=== PATIENT | male | born 1960 | race Caucasian/White ===

== ENCOUNTER 2024-01-02 10:24 | Emergency (ER) | payer MEDICARE, OTHER, SELFPAY ==
[2024-01-02 10:28] VITALS: BP 162/103
--- NOTE | 2024-01-02 11:05 | ED.GENMED ---
History of Present Illness
General
Chief Complaint: Abdominal Symptoms
Source: patient
Exam Limitations: none
Time Seen by Provider: 01/02/24 11:05
Nursing documentation reviewed up to this point in time: agreed with
History of Present Illness
History of Present Illness:
Patient is a 63-year-old male past medical history of A-fib normally in sinus rhythm not on anticoagulation presents to the ER for evaluation. Patient reports he woke up and rolled over in bed at 5 AM and noticed his left hand was tingling and he
had a sharp pain in the midsternal to left chest which lasted about 10 seconds. He reports the tingling in his arm also lasted for the same length of time. He had no associated shortness of breath. He was working shortly after in the morning and
had some spasming pain in his left shoulder and was concerned about cardiac symptoms. He presently is asymptomatic. He is followed by Dr. Sanii for his A-fib. He has had a history of 5 ablations 3 for tachycardia to for A-fib.
Past History
Past History
ED Past Medical History: Arrthythmia (Atrial fib), HTN and Other (arthritis, SVT, Ulcers)
ED Past Surgical History: Cardiac (Cardiac ablation X 2, Ablation for Tachycardia X 3), Orthopedic (Bilateral Knee replacement surgery, Left forearm surgery) and Other (Pulmonary vein ablation's .SVT ablations)
Social History
Tobacco: Non-smoker
Alcohol: Occasional
Personal:
Living: alone
Employment: Employed (sales)
Family History
Family History: Unable to obtain
Review of Systems
Review of Systems
Allergies reviewed?: Yes
All Other Systems: ROS reviewed and negative except as documented in HPI and ROS
Constitutional: Reports no symptoms
Respiratory: Reports no symptoms; Denies trouble breathing
Cardiac: Reports chest pain
ABD/GI: Reports no symptoms
Musculoskeletal: Reports no symptoms
Skin: Reports no symptoms
Neurological: Reports no symptoms
Psychiatric: Reports no symptoms
Phy Exam
General Physical Exam
General Presentation: no apparent distress
General age: appears stated age
General Skin: warm and dry
General Habitus: normal
General Mental: alert
General Hydration: appears well hydrated
Cardiovascular Exam
Cardiovascular Exam: regular rate/rhythm, no murmur and normal peripheral pulses
Pulmonary Exam
Pulmonary Exam: lungs clear and no respiratory distress
Neurological Exam
Neurological Exam: alert and oriented x3
Musculoskeletal Exam
Musculoskeletal Exam: full ROM
Skin Exam
Skin Exam: normal color and warm/dry
Psychiatric Exam
Psychiatric Exam: normal mood/affect
Course
Orders/Labs/Results
Orders:
Orders
01/02/24 10:28
EKG [Electrocardiogram (*1)] Urgent
Reason for Study: Chest Pain
EKG- Treatment ONCE
01/02/24 11:06
IV Insert/Care/Rem.- Treatment PRN
01/02/24 11:07
Cardiac Monitoring- Treatment ONCE
CR Chest - 2 Views Urgent
Comment:
Reason For Exam: 36 over hercp
01/02/24 11:34
Complete Blood Count/With Diff Urgent
Comprehensive Metabolic Panel Urgent
Troponin I Urgent
01/02/24 13:07
EKG- Treatment ONCE
01/02/24 14:22
Troponin I Urgent
01/02/24 14:30
Electrocardiogram (*1) Stat
Reason for Study: Other
Other Reason for Exam: chest pain
Abnormal Lab Results
01/02/24
11:34
Absolute Lymphs (auto) 0.8 L 10^3/uL
(1.2-3.4)
Lymphocytes % 15.0 L %
(20.5-51.1)
Monocytes % 10.0 H %
(1.7-9.3)
01/02/24 11:34
01/02/24 11:34
Vital Signs
Initial and Last Documented VS:
Initial Vital Signs
Temp Pulse Resp Pulse Ox
98.0 F 91 18 96
01/02/24 10:27 01/02/24 10:27 01/02/24 10:27 01/02/24 10:27
Last Documented Vital Signs
Temp Pulse Resp BP Pulse Ox
98.0 F 73 21 144/85 95
01/02/24 10:27 01/02/24 13:30 01/02/24 13:30 01/02/24 13:00 01/02/24 13:30
Customizer consulted with Physician
Customizer consulted with physician?: Yes
Name of Physician Consulted: Kendall
MDM/Problems Addressed
Differential Diagnosis Includes:
Not limited to ACS less likely, paresthesia muscular pain
MDM/Problems Addressed:
Patient is document is a 63-year-old male with history of A-fib normally in normal sinus rhythm history of several cardiac ablations presented for an episode of chest pain that was very brief in nature that he noticed in the middle the night
associate with arm tingling. He presents awake alert no acute distress asymptomatic. Initial troponin negative however will repeat second troponin and plan for discharge home with outpatient cardiac follow-up
Patient remains asymptomatic has not had any episodes here. No acute findings on EKG. Patient ludin in normal sinus rhythm. Second cardiac troponin negative no acute findings on chest x-ray. Will DC home on chest pain hotline.
Chronic conditions affecting care:
History of A-fib with multiple ablations.
*Radiology
Radiology exam reviewed: radiology read reviewed
*Pulse Oximetry
Patient hypoxic: no
*EKG
Interpreted by ED Provider?: Yes
Heart Rate: 82
Rate: normal
Rhythm: sinus
Ischemia: no ischemia
*Critical Care Note
Total Time (30-74mins, 75-104mins- exclusive of procedures): Not Applicable
ED Attending Note
-
Portions of this chart may have been created with voice recognition software.� Occasional wrong word or��sound alike� substitutions may have occurred due to the inherent limitations of voice recognition software.
Discharge Plan
Departure
Patient Disposition: Home (Routine Discharge)
Date of Disposition: 01/02/24
Time of Disposition: 15:22
Patient with high blood pressure during this ER visit?: Yes
Condition: Fair
Covid-19: Not Applicable
Discharge Problem:
Chest pain
Instructions: Chest Pain DCA Follow Up
Prescriptions:
No Action
omeprazole 20 MG capsule,delayed release(DR/EC)
20 mg PO DAILY
amlodipine [Norvasc] 2.5 MG tablet
2.5 mg PO DAILY
acetaminophen [Tylenol Extra Strength] 500 MG tablet
1,000 mg PO Q6HPRN PRN (Reason: pain)
ibuprofen [Advil] 200 MG tablet
400 mg PO Q4 PRN (Reason: pain)
montelukast 10 MG tablet
10 mg PO QPM
metoprolol succinate [Toprol XL] 25 MG tablet extended release 24 hr
25 mg PO DAILY
Xolair:
IM MONTHLY
fexofenadine-pseudoephedrine [Latrice-D 24 Hour] 1 EACH tablet extended release 24 hr
2 ea PO DAILY
oxycodone 5 MG tablet
5 mg PO Q4HPRN PRN (Reason: breakthrough/severe pain) Qty: 10 0RF
Referrals:
Saroj Saini MD [Active] -
Kishan Mckeon MD [Family Provider] -
Activity Restrictions/Additional Instructions:
As discussed, follow up with cardiology. You were placed on the chest pain hotline you should receive a phone call in the next several days. if you do not please give the office a call to schedule an appointment return if any worsening of symptoms.
Interventions
Interventions:
*Risk Screen - Suicide Last Done: 01/02/24 10:29
*General Assessment Last Done: 01/02/24 10:29
*Neglect/Abuse Screening Last Done: 01/02/24 10:29
ED- Fall Risk Assessment Last Done: 01/02/24 10:29
Discharge Date and Time
Print Language: SWAZI
[2024-01-02 11:37] VITALS: BP 127/85
[2024-01-02 11:48] LABS: % Basophils 1.2 % (0-2); % Immature Granulocytes 0.2 % (0-0.5); % Neutrophils 69.6 % (42.2-75.2); Absolute Basophils 0.1 10^3/uL (0-0.2); Absolute Eosinophils 0.2 10^3/uL (0-0.7); Absolute Lymphocytes 0.8 10^3/uL (1.2-3.4); Absolute Monocytes 0.5 10^3/uL (0.1-0.6); Absolute Neutrophils 3.6 10^3/uL (1.4-6.5); Hematocrit 45.3 % (39.0-52.0); Hemoglobin 15.8 g/dL (13.0-18.0); Mean Corp Hgb Conc. 34.9 g/dL (33.0-37.0); Mean Corpuscular Hgb 29.6 pg (27.0-31.0); Mean Corpuscular Volume 84.8 fL (80.0-94.0); Mean Platelet Volume 9.7 fL (7.4-10.4); Nucleated Red Blood Cells % 0 % (-); Platelet Count 228 10^3/uL (130-400); Red Blood Cell Count 5.34 10^6/uL (4.70-6.10); Red Cell Dist. Width 12.5 % (11.5-14.5); White Blood Cell Count 5.2 10^3/uL (4.8-10.8)
[2024-01-02 12:04] VITALS: BP 130/88
[2024-01-02 12:07] LABS: ALT (SGPT) 24 U/L (0-50); AST (SGOT) 25 U/L (17-59); Albumin 4.7 g/dl (3.5-5.0); Alkaline Phosphatase 54 U/L (38-126); Blood Urea Nitrogen 16 mg/dl (9-20); Calcium 9.7 mg/dl (8.4-10.2); Carbon Dioxide 23 mmol/L (22-30); Chloride 105 mmol/L (98-107); Glucose 95 mg/dl (70-99); Potassium 4.4 mmol/L (3.5-5.1); Sodium 143 mmol/L (135-145); Total Bilirubin 0.4 mg/dl (0.2-1.3); Total Protein 7.4 g/dl (6.3-8.2); eGFR > 60.00
[2024-01-02 12:14] LABS: Troponin I < 0.012 ng/ml
[2024-01-02 13:00] VITALS: BP 144/85
[2024-01-02 14:00] VITALS: BP 129/88
[2024-01-02 14:52] LABS: Troponin I < 0.012 ng/ml
[2024-01-02 15:00] VITALS: BP 138/88
== END 2024-01-02 15:45 | disposition home or self-care (01) ==
LOC: EMR 10:24
PROVIDERS: Nurse Practitioner; EMERGENCY PHYSICIAN Emergency Medicine; FAMILY PHYSICIAN Family Medicine
DX: R07.89 Other chest pain (principal); I48.91 Unspecified atrial fibrillation; I10 Essential (primary) hypertension; I47.10 Supraventricular tachycardia, unspecified
CPT/HCPCS: 99283; 71046; 80053; 84484; 85025; 93005

== ENCOUNTER → 2024-01-21 10:03 | Outpatient (REF) | payer MEDICARE, OTHER, SELFPAY | LOC: RCS 10:03 | PROVIDERS: ATTENDING PHYSICIAN Nurse Practitioner; FAMILY PHYSICIAN Family Medicine | DX: R07.89 Other chest pain (principal) | CPT/HCPCS: 93017 ==

== ENCOUNTER 2024-11-06 08:04 | Emergency (ER) | payer MEDICARE, OTHER, SELFPAY ==
[2024-11-06 08:07] VITALS: BP 135/97
--- NOTE | 2024-11-06 08:31 | ED.GENMED ---
History of Present Illness
<Dorys Navas UNIT SECY - Last Filed: 11/06/24 15:26>
General
Chief Complaint: Heart Rate Problem
Source: patient
Exam Limitations: none
Time Seen by Provider: 11/06/24 08:16
Nursing documentation reviewed up to this point in time: agreed with
History of Present Illness
History of Present Illness:
64 yo male w h/o afib, multiple ablations, cardioversions experienced palpitations around 3:30 AM. He reports a history of five episodes ablations. Typically, these episodes resolve with metoprolol, which he takes as a half tablet of 25mg daily. Not
anticoagulated. However, on this occasion, the palpitations have persisted. The patient is usually in normal sinus rhythm. Denies CP, SOB.
Medications:
- Metoprolol: 12.5 mg daily
- Latrice (fexofenadine) for chronic hives
- Montelukast for chronic hives
- Amlodipine for hypertension
- Mucinex (guaifenesin) as needed
Past History
<Dorys Navas, UNIT SECY - Last Filed: 11/06/24 15:26>
Past History
ED Past Medical History: Arrthythmia (Atrial fib), HTN and Other (arthritis, SVT, Ulcers)
ED Past Surgical History: Cardiac (Cardiac ablation X 2, Ablation for Tachycardia X 3), Orthopedic (Bilateral Knee replacement surgery, Left forearm surgery) and Other (Pulmonary vein ablation's .SVT ablations)
Social History
Tobacco: Non-smoker
Alcohol: Occasional
Personal:
Living: alone
Employment: Employed (sales)
Family History
Family History: Unable to obtain
Review of Systems
<Dorys Navas, UNIT SECY - Last Filed: 11/06/24 15:26>
Review of Systems
Allergies reviewed?: Yes
All Other Systems: ROS reviewed and negative except as documented in HPI and ROS
Respiratory: Denies trouble breathing
Cardiac: Reports palpitations; Denies chest pain
ABD/GI: Denies abdominal pain or nausea
Musculoskeletal: Denies edema
Phy Exam
<Dorys Navas, UNIT SECY - Last Filed: 11/06/24 15:26>
Physical Exam
Physical Exam:
GENERAL: No acute distress. A&Ox3.
CONSTITUTIONAL: Afebrile.
EYES: clear, conjunctivae normal
ENMT: moist mucus membranes
RESPIRATORY: Regular respirations, nonlabored, lungs clear.
CARDIOVASCULAR: Regular rate irregular rhythm, no murmurs, no rubs. HR 80's - 90's a fib on bedside monitor
GI: Soft, nontender, normal BS
MUSCULOSKELETAL: Moves with ease. Well perfused.
SKIN: Warm, dry, pink
PSYCH: Normal mood and affect. Well kept, interactive and appropriate
NEUROLOGIC: Awake, alert and oriented. No focal neurological deficits
Course
<Dorys Navas, UNIT SECY - Last Filed: 11/06/24 15:26>
Orders/Labs/Results
Orders:
Orders
11/06/24 08:06
Electrocardiogram (*1) Urgent
Reason for Study: Atrial Fibrillation
EKG- Treatment ONCE
11/06/24 09:26
Complete Blood Count/With Diff Urgent
Comprehensive Metabolic Panel Urgent
Free T4 Urgent
TSH Reflex To Free T4 Urgent
Abnormal Lab Results
11/06/24
09:26
Absolute Lymphs (auto) 0.9 L 10^3/uL
(1.2-3.4)
Lymphocytes % 13.7 L %
(20.5-51.1)
Chloride 111 H mmol/L
(98-107)
BUN 23 H mg/dl
(9-20)
Glucose 102 H mg/dl
(70-99)
TSH (Reflex) 5.66 H uIU/ml
(0.47-4.68)
11/06/24 09:26
11/06/24 09:26
Vital Signs
Initial and Last Documented VS:
Initial Vital Signs
Temp Pulse Resp BP Pulse Ox
98.6 F 88 18 135/97 96
11/06/24 08:07 11/06/24 08:07 11/06/24 08:07 11/06/24 08:07 11/06/24 08:07
Last Documented Vital Signs
Temp Pulse Resp BP Pulse Ox
98.6 F 90 16 134/87 95
11/06/24 08:07 11/06/24 10:30 11/06/24 10:30 11/06/24 10:00 11/06/24 10:30
<Renny Campbell, - Last Filed: 11/06/24 09:49>
Orders/Labs/Results
Orders:
Orders
11/06/24 08:06
Electrocardiogram (*1) Urgent
Reason for Study: Atrial Fibrillation
EKG- Treatment ONCE
11/06/24 09:26
Complete Blood Count/With Diff Urgent
Comprehensive Metabolic Panel Urgent
Free T4 Urgent
TSH Reflex To Free T4 Urgent
Abnormal Lab Results
11/06/24
09:26
Absolute Lymphs (auto) 0.9 L 10^3/uL
(1.2-3.4)
Lymphocytes % 13.7 L %
(20.5-51.1)
Chloride 111 H mmol/L
(98-107)
BUN 23 H mg/dl
(9-20)
Glucose 102 H mg/dl
(70-99)
TSH (Reflex) 5.66 H uIU/ml
(0.47-4.68)
11/06/24 09:26
08/02/25 09:26
Vital Signs
Initial and Last Documented VS:
Initial Vital Signs
Temp Pulse Resp BP Pulse Ox
98.6 F 88 18 135/97 96
11/06/24 08:07 11/06/24 08:07 11/06/24 08:07 11/06/24 08:07 11/06/24 08:07
Last Documented Vital Signs
Temp Pulse Resp BP Pulse Ox
98.6 F 90 16 134/87 95
11/06/24 08:07 11/06/24 10:30 11/06/24 10:30 11/06/24 10:00 11/06/24 10:30
<Dorys Navas, UNIT SECY - Last Filed: 11/06/24 15:26>
MDM/Problems Addressed
Differential Diagnosis Includes:
Afib w RVR
Thyroid disorder
Subclinical vs overt hypothyroidism
MDM/Problems Addressed:
64 yo male w h/o afib, multiple ablations, cardioversions experienced palpitations around 3:30 AM. He reports a history of five episodes ablations. Typically, these episodes resolve with metoprolol, which he takes as a half tablet of 25mg daily. Not
anticoagulated. However, on this occasion, the palpitations have persisted. The patient is usually in normal sinus rhythm. Denies CP, SOB.
In further conversation patient states he has been feeling palpitations off and on for the past 5 days.
EKG atrial fib
Dr. Moe in to evaluate.
Consulted Cardiology Dr. Caldwell who agrees with plan. He will send message to office to call pt Friday for appt.
CBC, CMP unremarkable
TSH: elevated 5.66 with normal T4. Discussed probable subclinical hypothyroidism with patient he will follow-up with his family doctor
He will be followed by cardiology this coming week
<Dorys Navas, UNIT SECY - Last Filed: 11/06/24 15:26>
*Pulse Oximetry
SaO2: 96
Oxygen Mode of Delivery: Room air
Patient hypoxic: no
*EKG
EKG Intrepretation Date: 11/06/24
Interpretation: abnormal
Heart Rate: 83
Rate: normal
Rhythm: a-fib
Maxwell: normal axis
QRS Pattern: normal QRS
Ischemia: no ischemia
*Critical Care Note
Total Time (30-74mins, 75-104mins- exclusive of procedures): Not Applicable
ED Attending Note
<Dorys Navas UNIT SECY - Last Filed: 11/06/24 15:26>
-
Portions of this chart may have been created with voice recognition software.� Occasional wrong word or��sound alike� substitutions may have occurred due to the inherent limitations of voice recognition software.
<Renny Campbell DO - Last Filed: 11/06/24 09:49>
ED Attending Note
Patient seen and examined by attending physician: Yes
I performed the substantive portion of visit, reviewed & personally made and approve the management plan that is documented in note by myself or LIZ.: Yes
ED Attending Note:
I evaluated the patient at bedside. The patient been having intermittent palpitations for the past 4 to 5 days. He is not anticoagulated. I do not feel that he can safely be cardioverted at this time in the emergency room. He currently has
virtually no symptoms. Will start on Eliquis and he is to follow-up with cardiology as an outpatient. Cardiology has been notified.
Discharge Plan
Departure
Patient Disposition: Home (Routine Discharge)
Date of Disposition: 11/06/24
Time of Disposition: 10:29
Patient with high blood pressure during this ER visit?: No
Condition: Good
Discharge Problem:
Atrial fibrillation, Subclinical hypothyroidism
Instructions: Atrial Fibrillation (DC), Apixaban
Prescriptions:
New
Eliquis 5 mg tablet
5 mg PO BID Qty: 60 0RF
No Action
omeprazole 20 MG capsule,delayed release(DR/EC)
20 mg PO DAILY
amlodipine [Norvasc] 2.5 MG tablet
2.5 mg PO DAILY
acetaminophen [Tylenol Extra Strength] 500 MG tablet
1,000 mg PO Q6HPRN PRN (Reason: pain)
ibuprofen [Advil] 200 MG tablet
400 mg PO Q4 PRN (Reason: pain)
montelukast 10 MG tablet
10 mg PO QPM
metoprolol succinate [Toprol XL] 25 MG tablet extended release 24 hr
25 mg PO DAILY
Xolair:
IM MONTHLY
fexofenadine-pseudoephedrine [Latrice-D 24 Hour] 1 EACH tablet extended release 24 hr
2 ea PO DAILY
oxycodone 5 MG tablet
5 mg PO Q4HPRN PRN (Reason: breakthrough/severe pain) Qty: 10 0RF
Referrals:
Gregorio Butler, [Active, Cardiology] - Keep scheduled appt
Kishan Mckeon MD [Family Provider, Family Practice]
Activity Restrictions/Additional Instructions:
As we discussed, I sent a prescription to your pharmacy for the blood thinner Eliquis. Start it today.
I spoke with the driving teacher Dr. Caldwell who will notify the office and have them call you most likely tomorrow to set up an appointment for follow-up.
Return here immediately for worsening symptoms, chest pain, lightheaded or dizziness, worse palpitations, trouble breathing or feeling worse in any way
Your TSH is mildly high and your T4 is normal, this is called subclinical hypothyroidism, nothing to do at this point, discussed with your doctor and you should have your TSH rechecked
Interventions
Interventions:
*Risk Screen - Suicide Last Done: 11/06/24 08:07
*General Assessment Last Done: 11/06/24 08:07
*Neglect/Abuse Screening Last Done: 11/06/24 08:07
*ED- Fall Risk Assessment Last Done: 11/06/24 11:36
*Nursing Disposition Last Done: 11/06/24 11:36
ED- Cardiac Assessment Last Done: 11/06/24 09:00
ED- Pulmonary Assessment Last Done: 11/06/24 09:00
Discharge Date and Time
Discharge Date/Time: 11/06/24 11:36
Print Language: GERMAN
[2024-11-06 08:58] VITALS: BP 144/92
[2024-11-06 09:00] VITALS: BP 140/89
[2024-11-06 09:40] LABS: Hematocrit 46.1 % (39.0-52.0); Hemoglobin 16.1 g/dL (13.0-18.0); Mean Corp Hgb Conc. 34.9 g/dL (33.0-37.0); Mean Corpuscular Volume 86.8 fL (80.0-94.0); Nucleated Red Blood Cells % 0 % (-); Platelet Count 224 10^3/uL (130-400); Red Cell Dist. Width 13.0 % (11.5-14.5)
[2024-11-06 10:00] VITALS: BP 134/87
[2024-11-06 10:02] LABS: ALT (SGPT) 23 U/L (0-50); AST (SGOT) 23 U/L (17-59); Albumin 4.4 g/dl (3.5-5.0); Alkaline Phosphatase 41 U/L (38-126); Blood Urea Nitrogen 23 mg/dl (9-20); Calcium 8.9 mg/dl (8.4-10.2); Carbon Dioxide 23 mmol/L (22-30); Chloride 111 mmol/L (98-107); Glucose 102 mg/dl (70-99); Potassium 4.5 mmol/L (3.5-5.1); Sodium 141 mmol/L (135-145); Total Protein 7.1 g/dl (6.3-8.2); eGFR > 60.00
== END 2024-11-06 11:36 | disposition home or self-care (01) ==
LOC: EMR 08:04
PROVIDERS: Registered Nurse; EMERGENCY PHYSICIAN Emergency Medicine; FAMILY PHYSICIAN Family Medicine
DX: I48.91 Unspecified atrial fibrillation (principal); E03.8 Other specified hypothyroidism; I10 Essential (primary) hypertension; I47.10 Supraventricular tachycardia, unspecified; M19.90 Unspecified osteoarthritis, unspecified site; L50.8 Other urticaria; Z79.01 Long term (current) use of anticoagulants; Z96.653 Presence of artificial knee joint, bilateral
CPT/HCPCS: 99284; 80053; 84439; 84443; 85025; 93005